=== PATIENT | female | born 1990 | race Caucasian/White ===

== ENCOUNTER 2018-06-23 02:00 | Inpatient (IN) | payer BC ==
[~2018-06-23] VITALS: Ht 157.5 cm; Wt 74.8 kg
[2018-06-23] MEDS ORDERED: OXYTOCIN/0.9 % SODIUM CHLORIDE 1,000 ML IV SCH (02:35)
[2018-06-23] MEDS ORDERED: LR 1,000 ML IV SCH ×2 (02:35→12:51)
[2018-06-23] MEDS ORDERED: AMPICILLIN SODIUM 2 GM VIAL ONE (02:43)
[2018-06-23] MEDS ORDERED: NALBUPHINE HCL 10 MG/ML AMP IVP PRN (02:45)
[2018-06-23] MEDS ORDERED: AMPICILLIN SODIUM 2 GM in NS 100 ML IV ONE (02:45)
[2018-06-23] MEDS ORDERED: NALBUPHINE HCL 10 MG/ML AMP IM PRN (02:45)
[2018-06-23] MEDS ORDERED: TERBUTALINE SULFATE 1 MG/ML VIAL SUBCUT ONE (02:45)
[2018-06-23 04:25] LABS: HEMATOCRIT 34.8 % (36-48); HEMOGLOBIN 11.6 g/dL (12.0-16.0); MEAN CORPUSCULAR HEMOGLOBIN 31 pg (27-31); MEAN CORPUSCULAR HGB CONC 33 % (32-36); MEAN CORPUSCULAR VOLUME 92 fL (79.0-98.0); NEUTROPHILS % (AUTO) 66.9 % (40.0-70.0); PLATELET COUNT (AUTO) 174 K/uL (130-430); RED BLOOD CELL COUNT(AUTO) 3.78 MIL/uL (4.2-6.2); RED CELL DISTRIBUTION WIDTH 16.2 % (9.0-15.0); WHITE BLOOD COUNT (AUTO) 6.4 K/uL (4.8-10.8)
[2018-06-23 04:26] LABS: BASOPHILS # (AUTO) 0.1 K/uL (0.0-0.2); BASOPHILS % (AUTO) 0.8 % (0.0-2.0); EOSINOPHILS # (AUTO) 0.1 K/uL (0.0-0.4); EOSINOPHILS % (AUTO) 1.2 % (0.0-4.0); LYMPHOCYTES # (AUTO) 1.5 K/uL (1.0-5.5); LYMPHOCYTES % (AUTO) 23.6 % (20.5-51.5); MONOCYTES # (AUTO) 0.5 K/uL (0.0-1.0); MONOCYTES % (AUTO) 7.5 % (1.7-9.3); NEUTROPHILS # (AUTO) 4.3 K/uL (1.8-7.7)
[2018-06-23] MEDS ORDERED: AMPICILLIN SODIUM 1 GM VIAL ONE (04:40)
[2018-06-23 05:05] VITALS: BP_SYST 116
[2018-06-23] MEDS: AMPICILLIN SODIUM 1 GM in NS 50 ML IV SCH ×2 (07:00→10:25)
[2018-06-23] MEDS ORDERED: MIDAZOLAM HCL 5 MG/5 ML VIAL IVP ONE (12:20)
[2018-06-23] MEDS ORDERED: CEFAZOLIN 2 GM IVPB PREMIX 50 ML IV ONE (12:20)
[2018-06-23] MEDS ORDERED: HEMABATE 250MCG/ML VIAL AMP IM ONE (12:20)
[2018-06-23] MEDS ORDERED: fentaNYL CITRATE/PF 100 MCG/2 ML AMP IVP ONE (12:20)
[2018-06-23] MEDS ORDERED: LR 1,000 ML IV.SOLN IV ONE (12:20)
[2018-06-23] MEDS ORDERED: SEVOFLURANE 15 MIN GAS INH ONE (12:20)
[2018-06-23] MEDS ORDERED: WATER FOR IRRIGATION,STERILE 1,000 ML IRRIG.SOLN IR ONE (12:20)
[2018-06-23] MEDS ORDERED: PROPOFOL 200MG/ 20ML VIAL (DIPRIVAN) IV ONE (12:20)
[2018-06-23] MEDS ORDERED: METHYLERGONOVINE MALEATE 0.2 MG/ML AMP IM ONE (12:20)
[2018-06-23] MEDS ORDERED: ONDANSETRON HCL 4 MG/2 ML VIAL IVP ONE (12:20)
[2018-06-23] MEDS ORDERED: OXYTOCIN/0.9 % SODIUM CHLORIDE 20 UNITS/1,000 ML BAG IV ONE (12:20)
[2018-06-23] MEDS ORDERED: ROCURONIUM BROMIDE 10 MG/ML (ZEMURON) IV ONE (12:20)
[2018-06-23] MEDS ORDERED: MORPHINE 4 MG/ML INJ. SYRINGE IVP PRN ×3 (13:00)
[2018-06-23] MEDS ORDERED: METOCLOPRAMIDE HCL 10 MG/2 ML VIAL IVP PRN (13:00)
[2018-06-23] MEDS ORDERED: MISOPROSTOL 100 MCG TABLET (CYTOTEC) ONE (13:40)
[2018-06-23] MEDS ORDERED: WITCH HAZEL LEAF 1 MED.PAD MED.PAD TP PRN (13:45)
[2018-06-23] MEDS ORDERED: OXYCODONE/ACETAMINOPHEN 5-325 TABLET PO PRN ×2 (13:45)
[2018-06-23] MEDS ORDERED: DIPH-TET-PERTUS Vaccine 0.5 ML VIAL (ADACEL) I.M. PRN (13:45)
[2018-06-23] MEDS ORDERED: RHO(D) IMMUNE GLOBULIN/MALTOSE 1500 UNITS/1.3 ML (WINHRO) IM PRN (13:45)
[2018-06-23] MEDS ORDERED: OXYTOCIN/0.9 % SODIUM CHLORIDE 1,000 ML IV ONE (13:45)
[2018-06-23] MEDS ORDERED: HYDROCORTISONE 0.5%, 28.35 GM TOPICAL CREAM TP PRN (13:45)
[2018-06-23] MEDS ORDERED: DERMOPLAST SPRAY TP PRN (13:45)
[2018-06-23] MEDS ORDERED: SENNOSIDES/DOCUSATE SODIUM 1 TAB TABLET(SENOKOT-S) PO PRN (13:45)
[2018-06-23] MEDS ORDERED: ANUSOL 1 EA SUPP.RECT (PREPARATION H) RC PRN (13:45)
[2018-06-23] MEDS ORDERED: MEASLES,MUMPS&RUBELLA VACC/PF 12500 UNIT/0.5 ML VIAL SUBQ PRN (13:45)
[2018-06-23] MEDS ORDERED: LANOLIN 7 GM OINT. TP PRN (13:45)
[2018-06-23 13:55] VITALS: BP_SYST 122
[2018-06-23] MEDS ORDERED: DIPHENOXYLATE HCL/ATROP SULF 2.5 MG TAB PO PRN (14:00)
[2018-06-23] MEDS: METHYLERGONOVINE MALEATE 0.2 MG TABLET PO PRN ×2 (16:49→21:08)
[2018-06-23] MEDS: IBUPROFEN 600 MG TABLET PO SCH (17:50)
[2018-06-23] MEDS ORDERED: TEMAZEPAM 15 MG CAPSULE PO PRN (21:00)
[2018-06-24] MEDS: METHYLERGONOVINE MALEATE 0.2 MG TABLET PO PRN (01:03)
[2018-06-24] MEDS ORDERED: NALOXONE HCL 2 MG/2 ML SYR (NARCAN) IV ONE (11:34)
[2018-06-24] MEDS ORDERED: MINERAL OIL 30 ML UDC PO ONE (11:34)
[2018-06-24] MEDS ORDERED: LIDOCAINE 1% 10 MG/ML, 20 ML MDV IM ONE (11:34)
[2018-06-24 11:41] LABS: HEMATOCRIT 29.3 % (36-48); HEMOGLOBIN 9.8 g/dL (12.0-16.0); RED BLOOD CELL COUNT(AUTO) 3.27 MIL/uL (4.2-6.2); WHITE BLOOD COUNT (AUTO) 8.2 K/uL (4.8-10.8)
[2018-06-24 11:42] LABS: BASOPHILS % (AUTO) 0.6 % (0.0-2.0); EOSINOPHILS % (AUTO) 0.3 % (0.0-4.0); LYMPHOCYTES # (AUTO) 1.6 K/uL (1.0-5.5); LYMPHOCYTES % (AUTO) 19.2 % (20.5-51.5); MEAN CORPUSCULAR HEMOGLOBIN 30 pg (27-31); MEAN CORPUSCULAR HGB CONC 33 % (32-36); MEAN CORPUSCULAR VOLUME 90 fL (79.0-98.0); MONOCYTES # (AUTO) 0.5 K/uL (0.0-1.0); NEUTROPHILS % (AUTO) 73.9 % (40.0-70.0); PLATELET COUNT (AUTO) 139 K/uL (130-430); RED CELL DISTRIBUTION WIDTH 15.9 % (9.0-15.0)
[2018-06-24] MEDS: IBUPROFEN 600 MG TABLET PO SCH (12:00)
[2018-06-25] MEDS: DOCUSATE SODIUM 100 MG CAPSULE PO PRN ×2 (01:45→12:40)
[2018-06-25] MEDS: IBUPROFEN 600 MG TABLET PO SCH ×3 (05:53→12:41)
== END 2018-06-25 14:05 | disposition home or self-care (01) | DRG 768 ==
LOC: SPU 02:00
PROVIDERS: ADMIT Obstetrics & Gynecology; ATTEND Obstetrics & Gynecology
PROC: 0UQC0ZZ Repair Cervix, Open Approach (ICD-10-PCS; 2018-06-23)
PROC: 10D17ZZ Extraction of Products of Conception, Retained, Via Natural or Artificial Opening (ICD-10-PCS; 2018-06-23)
PROC: 3E033VJ Introduction of Other Hormone into Peripheral Vein, Percutaneous Approach (ICD-10-PCS; 2018-06-23)
PROC: 10E0XZZ Delivery of Products of Conception, External Approach (ICD-10-PCS; principal; 2018-06-23 12:30)
DX: O24.420 Gestational diabetes mellitus in childbirth, diet controlled (principal); Z37.0 Single live birth; O72.0 Third-stage hemorrhage; O71.3 Obstetric laceration of cervix; O72.1 Other immediate postpartum hemorrhage; O99.02 Anemia complicating childbirth; D50.9 Iron deficiency anemia, unspecified; O99.824 Streptococcus B carrier state complicating childbirth; O77.0 Labor and delivery complicated by meconium in amniotic fluid; Z3A.39 39 weeks gestation of pregnancy
CPT/HCPCS: 36415; 82947-TC; 85025; 86592; 86886; 86900; 86901; J0290; J0690; J2001; J2210; J2250; J2300; J2310; J2405; J2590; J2704; J3010; J7060; J7120